=== PATIENT | female | born 1980 | race Caucasian/White ===

== ENCOUNTER 2017-03-26 04:40 | Inpatient (IN) | payer OTHER ==
[~2017-03-26] VITALS: Ht 160 cm; Wt 77.1 kg
[2017-03-26] MEDS ORDERED: Oxytocin 10 Unit/mL Inj IM PRN ×2 (04:50→09:20)
[2017-03-26] MEDS ORDERED: Lactated Ringer's 1,000 ML IV PRN (04:50)
[2017-03-26] MEDS ORDERED: Oxytocin 30 Units/500 mL LR 30 UNITS in IV Premix 1 EACH IV PRN ×2 (04:50→09:20)
[2017-03-26] MEDS ORDERED: Carboprost 250 mCg/mL Inj IM PRN ×2 (04:50→09:20)
[2017-03-26] MEDS ORDERED: Hemorrhage Kit, Post Partum XX ONE ×2 (04:50→09:20)
[2017-03-26] MEDS ORDERED: fentaNYL-PF 50 mCg/mL 2 mL Inj IVPUSH PRN (04:50)
[2017-03-26] MEDS ORDERED: Sodium Chloride LOK Flush 10 mL Syringe IVFLUSH PRN (04:50)
[2017-03-26] MEDS ORDERED: Methylergonovine 0.2 mg/mL Inj IM PRN ×2 (04:50→09:20)
[2017-03-26] MEDS ORDERED: Oxytocin 30 Units/500 mL LR Premix IV ONE (05:01)
[2017-03-26 05:18] LABS: Mean Corpuscular Hemoglobin 31.5 pg (27.0-35.0); Mean Corpuscular Volume 93.7 fL (81-100)
[2017-03-26] MEDS ORDERED: Penicillin G K 5,000,000 Units Inj ONE (05:23)
[2017-03-26] MEDS ORDERED: 0.9% Sodium Chloride 100 ML ONE (05:24)
[2017-03-26] MEDS ORDERED: 0.9% Sodium Chloride 100 ML IV ONE (05:25)
[2017-03-26] MEDS ORDERED: Penicillin G K 5,000,000 UNITS/100 ML D5W IV ONE ×2 (05:30)
--- NOTE | 2017-03-26 09:16 | ABG ---
DateTimeAnalyzed 09:08:00 -_ pH ____7.182 - pCO2 ___48.7__ -mmHg pO2 ___35.9__ -mmHg HCO3- ___17.5__ -mmol/L ABE __-11.0__ -mmol/L tHb ___16.2__ -g/dL O2Hb ___65.2__ -% COHb ____0.5__ -% MetHb ____1.1__ -% sO2 ___66.3__ -% FIO2 ___21.0__ -% Drawn By lw - Date/Time Notified____ 09:15:00 -_ Notified By lw - Notified Whom ___Dr. Tyler - B 757 -mmHg tO2 ___14.8__ -Vol% Dimas test N/A -
[2017-03-26] MEDS ORDERED: Lactated Ringer's 1,000 ML IV SCH (09:19)
[2017-03-26] MEDS ORDERED: LANOlin HPA 7 Gm Ointment TOPICAL PRN (09:20)
[2017-03-26] MEDS ORDERED: Benzocaine (Dermoplast) 20% 60 Gm Spray TOPICAL PRN (09:20)
--- NOTE | 2017-03-26 09:21 | ABG ---
DateTimeAnalyzed 09:14:00 -_ pH ____7.320 - 7.190 7.490 pCO2 ___33.3__ -mmHg pO2 ___39.6__ -mmHg 15.0 45.0 HCO3- ___16.7__ -mmol/L ABE ___-8.0__ -mmol/L tHb ___16.5__ -g/dL O2Hb ___78.0__ -% COHb ____1.1__ -% MetHb ____1.0__ -% sO2 ___79.7__ -% FIO2 ___21.0__ -% Drawn By LW - Date/Time Notified____ 09:21:00 -_ Notified By lw - Notified Whom ___Dr. Tyler - B 757 -mmHg tO2 ___18.1__ -Vol% OrderingPhysicianInitials EC - Dimas test N/A -
[2017-03-26] MEDS: Witch Hazel-Glycerin Pads TOPICAL PRN ×2 (09:45→21:12)
[2017-03-26] MEDS: HYDROcodone-APAP 5-325 mg Tablet PO PRN ×2 (12:50→22:47)
--- NOTE | 2017-03-26 18:26 | OP ---
[address] [address] OPERATIVE REPORT PATIENT: DORA RIGGS : 1980 MR#: [id number] ADMIT: 03/26/2017 JOB ID: [id number] DELIVERY NOTE: DATE OF DELIVERY: 03/26/2017 DELIVERING PHYSICIAN: Levi Weston MD DETAILS OF DELIVERY: On March 26, 2017, at 8:15 a.m., this 36-year-old, female at 40 weeks and 3 days estimated gestational age, delivered a vigorous male with Apgars of 7 and 9 by vacuum delivery. The patient had been flakita since 2 in the morning and arrived at the hospital about 4 in the morning. She was flakita every five minutes and was substantially feeling them. She progressed to 6 cm dilation on her own. She had her membranes stripped the day before by myself. She did not want an epidural. She continued to progress in quick fashion to complete by 5:30 a.m. The strip looked reactive and reassuring throughout her time except for some terminal decelerations with a nuchal cord that was noted at delivery. The patient did push for almost 3 hours before I suggested the vacuum to help preserve her from exhaustion and just help bring the to position. They understood the consent and at this point, I applied the vacuum being careful to avoid the fontanels as well as the cervix. During the 1st set of contractions that I use this for, I started on the second push. I made enough progress before the vacuum popped off, that patient felt even more of the vertex in her pelvis and the nuchal cord. At this point, must have pulled a little bit tighter since some decels were noted. The patient was doing some good pushing on her own at this point, and so I did not apply the vacuum again right away. After a couple of contractions where she pushed on her own, the terminal decels were a little bit lower and into the 70s and 80s. For this reason, I reapplied the vacuum and brought the to . This was successful and within a couple of more contractions, the infant's vertex delivered across a second-degree midline perineal laceration. I just injected the perineal area with 10 cc of 1% lidocaine. No additional use of the vacuum was necessary but shoulder dystocia was noted that lasted for about a minute and a half. The delivery of the posterior arm was necessary prior to the relief of the shoulder dystocia. The infant was delivered up and onto the patient's abdomen where the cord was immediately clamped and cut and the property officer had been notified and was present to receive the baby. Cord gases were sent. The baby had an excellent resuscitation on the warmer prior to returning to the patient. The second-degree midline perineal laceration was noted and repaired in the usual fashion using 3-0 Vicryl. The patient delivered the placenta spontaneously and intact with a three-vessel cord approximately 7-10 minutes after delivery. Her total blood loss was 300 cc at the time, and so no Pitocin was started, especially since she had a firm uterus. There was no other complications of delivery. Counts were correct x2. The patient was in excellent condition following delivery. I did spend extra time debriefing the patient and staff about the vacuum delivery and shoulder dystocia once the patient was more comfortable. cc: [facility] DATE OF SURGERY: SURGEON: POSTOPERATIVE DIAGNOSIS(ES): PREOPERATIVE DIAGNOSIS(ES):
[2017-03-27 06:27] LABS: Mean Corpuscular Hemoglobin 32.1 pg (27.0-35.0); Mean Corpuscular Volume 95.6 fL (81-100)
[2017-03-27] MEDS: Witch Hazel-Glycerin Pads TOPICAL PRN (08:17)
[2017-03-27] MEDS: HYDROcodone-APAP 5-325 mg Tablet PO PRN (08:18)
--- NOTE | 2017-03-27 09:35 | PCM.DC.OB ---
Obstetrical Discharge Summary Date of Service Mar 27, 2017 Date of hospital admission Mar 26, 2017 at 04:43 Date of Discharge: Mar 27, 2017 Providers Admitting Physician: Levi Weston MD Primary Care Physician: Heydi Poe CNM Attending Physician: Levi Weston MD Problems: (1) Status post vacuum-assisted vaginal delivery Status: Acute ICD Code: Z87.42 Consultations None Invasive procedures Vacuum delivery of 8 lb 15 oz male Date of Procedure: Mar 26, 2017 Hospital Course: Patient presented in labor and delivered by vacuum delivery. Recovered well and had just a 2nd degree tear. Follow-up plan See me in 6-8 weeks Discharge Diet: No restrictions Discharge Activity-General: Pelvic Rest for 6 weeks, Be up and about, Balance rest and activity, Activity as pain allows, Activity as energy allows, No lifting >15 pounds for 2 weeks copies to: Prachi Gibson ND, David B MD Mar 27, 2017 09:35
--- NOTE | 2017-03-27 09:41 | PCM.DIOB ---
Obstetrical Disch Instruction Date of Service: Mar 27, 2017 Dates of Hospitalization Date of Hospital Admission Mar 26, 2017 at 04:43 Providers Admitting Physician: Levi Weston MD Primary Care Physician: Heydi Poe CNM Attending Physician: Levi Weston MD Discharge Diagnosis Problems: (1) Status post vacuum-assisted vaginal delivery Status: Acute ICD Code: Z87.42 Diet Discharge Diet: No restrictions Activity Discharge Activity-General: Pelvic Rest for 6 weeks, Balance rest and activity , Activity as pain allows, Activity as energy allows, No lifting >15 pounds for 2 weeks Dressing and Incisional Care Hygiene: May shower, Perineal care, Sitz bath, Dermoplast spray, Witch Dulce Maria pads Follow Up Plan Follow-up Provider (F9): Levi Weston MD Follow-up appointment: Weeks (6) Call your provider for: Fever or Chills, Heavy vaginal bleeding, Excessive constipation, Vaginal discomfort, Red painful breasts Levi Weston MD Mar 27, 2017 09:41
[2017-03-27] MEDS ORDERED: HYDR-4003 PO (09:43)
[2017-03-27] MEDS ORDERED: IBUP800T28 PO (09:43)
[2017-03-27 12:03] VITALS: BP 125/56; PULSE 88; RESP 16
== END 2017-03-27 14:39 | disposition home or self-care (01) | DRG 775 ==
LOC: FBCO 04:40 → FBC 04:43
PROVIDERS: ADMIT Family Medicine; ATTEND Family Medicine
PROC: 10D07Z6 Extraction of Products of Conception, Vacuum, Via Natural or Artificial Opening (ICD-10-PCS; principal; 2017-03-26)
PROC: 0KQM0ZZ Repair Perineum Muscle, Open Approach (ICD-10-PCS; 2017-03-26)
PROC: 4A033R1 Measurement of Arterial Saturation, Peripheral, Percutaneous Approach (ICD-10-PCS; 2017-03-26)
DX: O76 Abnormality in fetal heart rate and rhythm complicating labor and delivery (principal); O70.1 Second degree perineal laceration during delivery; O66.0 Obstructed labor due to shoulder dystocia; O75.81 Maternal exhaustion complicating labor and delivery; O99.824 Streptococcus B carrier state complicating childbirth; O69.1XX0 Labor and delivery complicated by cord around neck, with compression, not applicable or unspecified; Z3A.40 40 weeks gestation of pregnancy; Z37.0 Single live birth